=== PATIENT | male | born 1970 | race Caucasian/White ===

== ENCOUNTER → 2021-02-24 | Outpatient (CLI) | payer BC ==
--- NOTE | 2021-02-24 21:44 | REPVR ---
PROCEDURE INFORMATION: Exam: MR Lumbar Spine Without Contrast Exam date and time: 02/24/2021 8:40 AM Age: 50 years old Clinical indication: Low back pain; Additional info: Lbp TECHNIQUE: Imaging protocol: Multiplanar magnetic resonance images of the lumbar spine without intravenous contrast. COMPARISON: No relevant prior studies available. FINDINGS: Vertebrae: There is no acute fracture or listhesis. Marrow signal is within normal limits. Spinal cord: Normal signal. No cord compression. L1-L2: There is shallow disc bulging. There is mild facet hypertrophy. The spinal canal and neural foramina are patent. L2-L3: No significant disc disease. There is mild facet hypertrophy. No significant spinal canal stenosis. No neural foraminal stenosis. L3-L4: There is shallow disc bulging. There is mild facet hypertrophy. There is mild bilateral neural foraminal narrowing. L4-L5: There is diffuse disc bulging with a superimposed right paracentral/subarticular protrusion/extrusion. This effaces the right lateral recess, with potential compromise of the right L4 nerve root. There is mild to moderate canal stenosis. There is moderate facet hypertrophy. There is moderate bilateral neural foraminal narrowing. L5-S1: There is diffuse disc bulging with a left paracentral and subarticular disc bulge and annular tear. This indents the ventral thecal sac and moderately narrows the left lateral recess. There is mild facet hypertrophy. There is [id number] bilateral neural foraminal narrowing. Soft tissues: Unremarkable. IMPRESSION: Degenerative disc disease and spondylosis. At L4/5, right paracentral/subarticular protrusion/extrusion effaces the right lateral recess, with potential compromise of the right L5 nerve root. Electronically signed by: Estefania Garner On 02/24/2021 21:44:19 PM
== END ==
LOC: M PLAIMG 07:52
PROVIDERS: ATTEND Orthopaedic Surgery
DX: M54.5 Low back pain (principal)